=== PATIENT | male | born 1950 | race Asian ===

== ENCOUNTER 2021-01-07 18:02 | Emergency (ER) | payer OTHER ==
[2021-01-07 18:24] VITALS: BMI 27.1
[2021-01-07] MEDS ORDERED: ASPIRIN 81 MG CHEWABLE TABLETS PO ONE (20:06)
[2021-01-07] MEDS ORDERED: ASPIRIN 81 MG CHEWABLE TABLETS ONE (20:09)
[2021-01-07] MEDS ORDERED: HEPARIN NA (PORCINE) 5,000 UNITS/ML 1ML VIAL IVPUSH PRN ×2 (20:23)
[2021-01-07] MEDS ORDERED: HEPARIN NA (PORCINE) 5,000 UNITS/ML 1ML VIAL IVPUSH ONE (20:23)
[2021-01-07] MEDS ORDERED: NITROGLYCERIN SUBLINGUAL 1/150 0.4 MG TAB SL ONE (20:23)
[2021-01-07] MEDS ORDERED: HEPARIN - 25,000 UNIT in SODIUM CHLORIDE 495 ML IV SCH (20:30)
[2021-01-07 20:35] LABS: BASO % 0.5 % (0-2.0); EOS % 0.1 % (0-4.5); HEMATOCRIT 43.1 % (35.4-49); HEMOGLOBIN 14.7 GM/dL (11.7-16.9); LYMPH % 12.7 % (8-40); MEAN CELL VOLUME 91.3 fl (80-96); MEAN PLT VOLUME 8.2 fl (7.5-11.1); MONO % 4.1 % (3.8-10.2); NEUT % 82.6 % (42.8-82.8); PLATELET COUNT 195 K/MM3 (134-434); RBC 4.73 M/mm3 (4.00-5.60); RDW 12.7 % (11.9-15.9); WHITE BLOOD COUNT 8.7 K/mm3 (4.0-10.0)
[2021-01-07] MEDS ORDERED: HEPARIN INFUSION - 25,000 UNITS/500 ML INFUS.BAG IVPB ONE (20:37)
[2021-01-07] MEDS ORDERED: HEPARIN NA (PORCINE) 5,000 UNITS/ML 1ML VIAL SQ ONE (20:41)
[2021-01-07 20:42] LABS: INR 0.96 (0.83-1.09); PROTHROMBIN TIME (PATIENT) 11.6 SEC (9.7-13.0)
[2021-01-07 20:44] LABS: ACTIVATED PTT 25.5 SECONDS (25.2-36.5)
[2021-01-07] MEDS ORDERED: HEPARIN NA (PORCINE) 5,000 UNITS/ML 1ML VIAL ONE (20:48)
[2021-01-07 21:05] LABS: MAGNESIUM 2.4 mg/dL (1.8-2.4)
[2021-01-07 21:10] LABS: N-TERMINAL BNP 1190.7 pg/ml (5-125)
[2021-01-07] MEDS ORDERED: CEFTRIAXONE 1 GM in DEXTROSE 5%-WATER - 100 ML IVPB ONE (21:40)
[2021-01-07] MEDS ORDERED: AZITHROMYCIN IVPB 500 MG in DEXTROSE 5%-WATER - 250 ML IVPB ONE (21:40)
[2021-01-07] MEDS ORDERED: CEFTRIAXONE 1 GM/50 ML BAG ONE (21:47)
[2021-01-07] MEDS ORDERED: AZITHROMYCIN IVPB 500 MG/250 ML BAG IVPB ONE (21:47)
[2021-01-07 21:54] LABS: POTASSIUM 3.7 mmol/L (3.5-5.1)
[2021-01-07 21:56] LABS: CALCIUM 8.4 mg/dL (8.5-10.1)
[2021-01-07 21:57] LABS: BLOOD UREA NITROGEN 16.8 mg/dL (7-18)
[2021-01-07 22:00] LABS: CREATININE 1.3 mg/dL (0.55-1.3)
[2021-01-07 22:01] LABS: BILIRUBIN,TOTAL 1.5 mg/dL (0.2-1); TOT PROT 7.7 g/dl (6.4-8.2)
[2021-01-07 22:16] LABS: ALBUMIN 3.8 g/dl (3.4-5.0)
[2021-01-07 23:39] VITALS: TEMP 98.6
[2021-01-08] MEDS ORDERED: CLOPIDOGREL BISULFATE 300 MG TABLET PO ONE (00:20)
[2021-01-08] MEDS ORDERED: CLOPIDOGREL BISULFATE 300 MG TABLET ONE (00:25)
[2021-01-08] MEDS ORDERED: NITROGLYCERIN 50MG/D5W 250ML 50 MG/250 ML ML IVPB SCH (00:30)
[2021-01-08] MEDS ORDERED: NITROGLYCERIN 25MG/D5W 250ML 25 MG/250 ML ML IVPB ONE (01:25)
[2021-01-08] MEDS ORDERED: NITROGLYCERIN 25MG/D5W 250ML 25 MG/250 ML ML IVPB SCH (01:45)
[2021-01-08] MEDS ORDERED: morphine CARPU-JECT 2 MG/1 ML DISP.SYRIN IVPUSH ONE (03:23)
[2021-01-08] MEDS ORDERED: morphine CARPU-JECT 2 MG/1 ML DISP.SYRIN IM ONE (03:34)
[2021-01-08 03:53] VITALS: BP 126/75; PULSE 76
== END 2021-01-08 03:58 | disposition short-term general hospital (02) ==
LOC: JER 18:02
PROC: 3E03329 Introduction of Other Anti-infective into Peripheral Vein, Percutaneous Approach (ICD-10-PCS; principal; 2021-01-07)
PROC: 3E03329 Introduction of Other Anti-infective into Peripheral Vein, Percutaneous Approach (ICD-10-PCS; 2021-01-07)
PROC: 3E033GC Introduction of Other Therapeutic Substance into Peripheral Vein, Percutaneous Approach (ICD-10-PCS; 2021-01-07)
PROC: 3E033GC Introduction of Other Therapeutic Substance into Peripheral Vein, Percutaneous Approach (ICD-10-PCS; 2021-01-07)
DX: I24.9 Acute ischemic heart disease, unspecified (principal); I21.3 ST elevation (STEMI) myocardial infarction of unspecified site
CPT/HCPCS: 36415; 71045-TC-FY; 80053; 80061; 82550; 82553; 83690; 83721; 83735; 83880; 84484; 85025; 85610; 85730; 86850; 86900; 86901; 93005; 93010; 99285-25; C9803; J1644; U0003

== ENCOUNTER 2024-03-22 13:13 | Emergency (ER) | payer OTHER ==
[2024-03-22 13:32] VITALS: BP 163/53; PULSE 70; RESP 18; TEMP 97.5; BMI 24.3
[2024-03-22 14:31] LABS: PH,URINE 6.5 (5.0-8.0); URINE APPEARANCE CLEAR; URINE BILIRUBIN NEGATIVE (NEGATIVE); URINE COLOR YELLOW; URINE GLUCOSE (UA) 3+ (NEGATIVE); URINE KETONE NEGATIVE (NEGATIVE); URINE LEUK ESTERASE NEGATIVE (NEGATIVE); URINE NITRITE NEGATIVE (NEGATIVE); URINE PROTEIN NEGATIVE (NEGATIVE); URINE UROBILINOGEN 0.2 mg/dL (0.2-1.0)
== END 2024-03-22 15:03 | disposition home or self-care (01) ==
LOC: JER 13:13
PROC: 0T2BX0Z Change Drainage Device in Bladder, External Approach (ICD-10-PCS; principal; 2024-03-22)
DX: R33.9 Retention of urine, unspecified (principal); R10.30 Lower abdominal pain, unspecified
CPT/HCPCS: 81003; 87086; 99283-25